=== PATIENT | male | born 1970 | race Caucasian/White ===

== ENCOUNTER 2018-04-29 14:35 | Emergency (ER) | payer MEDICAID ==
[~2018-04-29] VITALS: Ht 175.3 cm; Wt 65.3 kg
[~2018-04-29 14:35] MED LIST: ATI1 PO; FOL1 PO; MULTI-VITAMINS1 TAB PO; PRI20 PO; THI100 PO
[2018-04-29 14:42] VITALS: BP 110/85; Ht 175.3 cm; Wt 65.3 kg
== END 2018-04-29 16:57 | disposition home or self-care (01) ==
LOC: ED 14:35
DX: S92.502A Displaced unspecified fracture of left lesser toe(s), initial encounter for closed fracture (principal); W22.8XXA Striking against or struck by other objects, initial encounter; Y93.89 Activity, other specified; Y92.89 Other specified places as the place of occurrence of the external cause; Y99.8 Other external cause status; Z88.5 Allergy status to narcotic agent; Z91.012 Allergy to eggs